=== PATIENT | female | born 1930 | race Asian ===

== ENCOUNTER 2017-04-12 14:46 | Emergency (ER) | payer OTHER ==
[~2017-04-12] VITALS: Ht 149.9 cm; Wt 58.0 kg
[~2017-04-12 14:46] MED LIST: ASPI-825 PO; CALC-590 PO; INSLAN SQ; METF10002 PO; MULT1TAB70 PO; PIOG30TA10 PO; SIMV20TA6 PO; VALS1TAB48 PO
[2017-04-12 16:20] VITALS: BP 124/62
== END 2017-04-12 16:28 | disposition home or self-care (01) ==
LOC: EMS 14:47
DX: S00.03XA Contusion of scalp, initial encounter (principal); H26.9 Unspecified cataract; E11.9 Type 2 diabetes mellitus without complications; E78.00 Pure hypercholesterolemia, unspecified; Z79.4 Long term (current) use of insulin; Z79.82 Long term (current) use of aspirin; W10.9XXA Fall (on) (from) unspecified stairs and steps, initial encounter; Y93.89 Activity, other specified; Y92.89 Other specified places as the place of occurrence of the external cause; Y99.8 Other external cause status
CPT/HCPCS: 70450; 72125; 99284